=== PATIENT | female | born 1975 | race Caucasian/White ===

== ENCOUNTER 2020-05-13 21:03 | Emergency (ER) | payer SELFPAY ==
[2020-05-13 21:17] VITALS: BP 129/81; PULSE 108; RESP 20; TEMP 37.2; O2SAT 95
== END 2020-05-13 21:54 | disposition left against medical advice (07) ==
LOC: ANHED 21:53
PROVIDERS: Family Provider Obstetrics & Gynecology
DX: R50.9 Fever, unspecified (principal)
CPT/HCPCS: 99199

== ENCOUNTER 2023-11-09 08:18 | Emergency (ER) | payer SELFPAY ==
[2023-11-09] VITALS (27 sets, daily range): BP systolic 123–157; BP diastolic 70–85; PULSE 56–88; RESP 12–19; TEMP 37; O2SAT 98–100
[2023-11-09 10:06] LABS: Basophils Absolute Auto 0.1 K/mm3 (0.0-0.1); Basophils Percent Auto 0.6 % (0.2-1.2); Eosinophils Absolute Auto 0.1 K/mm3 (0-0.3); Eosinophils Percent Auto 0.7 % (0-4.4); Hematocrit 42.4 % (37.0-47.0); Hemoglobin 14.1 g/dL (12.0-15.0); Immature Granulocyte Absolute 0.03 K/mm3 (0.00-0.031); Immature Granulocyte Percent A 0.3 % (0-0.5); Lymphocytes Absolute Auto 1.19 K/mm3 (0.9-3.2); Lymphocytes Percent Auto 12.3 % (18.3-44.2); Mean Corpuscular HGB Conc 33.3 g/dl (32-36); Mean Corpuscular Hemoglobin 32.4 pg (26-34); Mean Corpuscular Volume 97.5 fl (80-100); Mean Platelet Volume 9.3 fl (7.4-10.4); Monocytes Absolute Auto 0.6 K/mm3 (0.1-0.6); Neutrophils Absolute Auto 7.8 K/mm3 (1.3-6.7); Neutrophils Percent Auto 80.1 % (45.5-73.1); Platelet Count Result 256 k/mm3 (150-375); Red Blood Count 4.35 M/mm3 (4.2-5.4); Red Cell Distribution Width 14.2 % (11.5-14.5); White Blood Count 9.7 K/mm3 (4.5-10.0)
[2023-11-09 10:18] LABS: Alanine Aminotransferase 16 U/L (6-35); Alkaline Phosphatase 60 U/L (38-126); Anion Gap 7 mmol/L (4-12); Aspartate Amino Transferase 24 U/L (14-36); Blood Urea Nitrogen 11 mg/dL (7-17); Calcium 8.8 mg/dL (8.4-10.2); Carbon Dioxide 25 mmol/L (22-30); Chloride 105 mmol/L (98-107); Estimated CRCL calculation 86 ml/min; Estimated Glomerular Filt Rate > 60; Glucose 108 mg/dL (65-110); Lipase 51 U/L (23-300); Potassium 3.4 mmol/L (3.4-5.0); Sodium 137 mmol/L (137-145)
[2023-11-09 10:22] LABS: Appearance Urine Cloudy (Clear); Bacteria Urine None Seen /hpf; Bilirubin Urine Negative (Negative); Blood Urine Negative (Negative); Color Urine Yellow (Yellow); Glucose Urine UA Negative (Negative); Ketones Urine 1+ mg/dL (Negative); Leukocyte Esterase Ur Negative LEU/UL (Negative); Nitrate Urine Negative (Negative); Non Pathogenic Casts 0-2; Protein Urine 1+ mg/dL (Negative); RBC Urine 0-2 /hpf (0-2); Specific Grav Ur 1.025 (1.001-1.035); Squamous Epithelial Cell Urine Occasional /hpf (Few); WBC Urine 0-5 /hpf (0-3); pH Urine 5.5 (5.0-9.0)
[2023-11-09 10:27] LABS: Add Urine Microscopic? YES
--- NOTE | 2023-11-09 11:30 | ED.DIZZY ---
HPI - Dizziness General Chief Complaint: Dizziness Stated Complaint: dizzy Time Seen by Provider: 11/09/23 09:57 History of Present Illness HPI Narrative: 48-year-old female presenting to the emergency department for evaluation for right ear fullness ringing and associated dizziness. Patient states she began having the cessation last night, persisted through the evening and into today. Patient describes a spinning sensation, patient denies any feeling like she is going at loss consciousness. Patient denies any other associated numbness or weakness. Patient denies any recent cough cold fevers. Related Data Allergies Allergy/AdvReac Type Severity Reaction Status Date / Time No Known Allergies Allergy Verified 05/13/20 21:05 Review of Systems Review of Systems: All systems reviewed & are unremarkable except as noted in HPI and below Exam Narrative: APPEARANCE: Well appearing, no pain, no distress, well-nourished. HEAD: normocephalic, atraumatic. EYES: PERRLA/EOMI, conjunctivae clear. NOSE: Normal no drainage EARS: Right TM fullness without erythema, no mastoid tenderness THROAT: Pharynx clear, no exudate. NECK: Supple. No adenopathy, no masses. RESPIRATORY: Airway patent, respirations nonlabored. Clear to auscultation bilaterally, no rales, rhonchi, wheezing. CARDIOVASCULAR: Regular rate and rhythm without murmurs rubs or gallops. ABDOMINAL: Soft, nontender, nondistended, normal bowel sounds MUSCULOSKELETAL: Moves all extremities. Strength/ROM intact, No edema, No calf tenderness. NEURO: Alert. Cranial nerves II through XII intact. Grossly intact SKIN: Warm, dry. Normal Color Course Course Emergency Course: Patient felt improved with treatment was able to ambulate at her baseline. Vital Signs Vital signs: Vital Signs Temperature 98.6 F 11/09/23 08:25 Pulse Rate 78 11/09/23 08:25 Respiratory Rate 16 11/09/23 08:25 Blood Pressure 157/75 H 11/09/23 08:25 Pulse Oximetry 100 11/09/23 08:25 Oxygen Delivery Room Air 11/09/23 08:25 Temperature 98.6 F 11/09/23 08:25 Pulse Rate 88 11/09/23 13:12 Respiratory Rate 19 11/09/23 13:12 Blood Pressure 123/77 11/09/23 13:12 Pulse Oximetry 99 11/09/23 13:12 Oxygen Delivery Room Air 11/09/23 08:25 MDM - Dizziness MDM Narrative Medical decision making narrative: 48-year-old female presents to the emergency department for evaluation for dizziness. Patient is afebrile with no leukocytosis and a stable hemoglobin 14.1. No acute abnormalities on her CMP. UA was negative for infection. Suspect vertigo with a middle ear effusion on the right. Patient was treated with meclizine and a dose of dexamethasone. Patient states he feels significantly improved able to ambulate emergency department without issues. Patient was encouraged of close follow-up with primary care physician for follow-up. Patient will be discharged home with meclizine for symptom control. Differential Diagnosis Differential diagnosis: Likely benign paroxysmal positional vertigo, orthostatic hypotension, acute vestibular neuronitis and transient cerebral ischemia Lab Data Attestation: I reviewed the patient's lab results. 11/09/23 09:59 11/09/23 09:59 Labs: Lab Results 11/09/23 11/09/23 Range/Units 09:59 10:09 WBC 9.7 (4.5-10.0) K/mm3 RBC 4.35 (4.2-5.4) M/mm3 Hgb 14.1 (12.0-15.0) g/dL Hct 42.4 (37.0-47.0) % MCV 97.5 (80-100) fl MCH 32.4 (26-34) pg MCHC 33.3 (32-36) g/dl RDW 14.2 (11.5-14.5) % Plt Count 256 (150-375) k/mm3 MPV 9.3 (7.4-10.4) fl Immature Gran % (Auto) 0.3 (0-0.5) % Neut % (Auto) 80.1 H (45.5-73.1) % Lymph % (Auto) 12.3 L (18.3-44.2) % [place] % (Auto) 6.0 (2.6-8.5) % Eos % (Auto) 0.7 (0-4.4) % Baso % (Auto) 0.6 (0.2-1.2) % Lymph # (Auto) 1.19 (0.9-3.2) K/mm3 [place] # (Auto) 0.6 (0.1-0.6) K/mm3 Eos # (Auto) 0.1 (0-0.3) K/mm3 Baso # (Auto) 0.
[2023-11-09] MEDS: dexAMETHasone SOD PHOS INJ 10 MG/ML 1 ML VIAL IV PUSH (12:09)
[2023-11-09] MEDS: MECLIZINE HCL 25 MG TABLET PO (12:09)
[2023-11-09] MEDS: ONDANSETRON INJ 4 MG/2 ML VIAL IV PUSH (12:09)
== END 2023-11-09 13:32 | disposition home or self-care (01) ==
PROVIDERS: Student in an Organized Health Care Education/Training Program; Emergency Provider Emergency Medicine
DX: R42 Dizziness and giddiness (principal)
CPT/HCPCS: 36415; 80053; 81001; 81025; 83690; 85025; 96374; 96375; 99284; A9270; J1100; J2405